=== PATIENT | female | born 1995 | race African-American/Black ===

== ENCOUNTER 2023-10-17 12:51 | Emergency (ER) | payer OTHER ==
[2023-10-17] MEDS ORDERED: Azithromycin 1,000 MG, Admixture Fee 1 EACH in Sodium Chloride 0.9% 500 ML IVPB SCH (13:45)
[2023-10-17] MEDS ORDERED: Tranexamic Acid 1,000 MG/10 ML VIAL ONE (13:55)
[2023-10-17] MEDS ORDERED: Carboprost 250 MCG/ML AMP ONE (13:55)
[2023-10-17] MEDS ORDERED: Misoprostol 200 MCG TAB ONE (13:55)
[2023-10-17] MEDS ORDERED: Methylergonovine 0.2 MG/ML VIAL ONE (13:56)
[2023-10-17] MEDS ORDERED: SUGAMMADEX SODIUM 200 MG/2 ML VIAL ONE (14:02)
[2023-10-17] MEDS ORDERED: Famotidine/PF 20 mg/2ml Vial ONE (14:02)
[2023-10-17] MEDS ORDERED: PROPOFOL 20 ML ONE (14:03)
[2023-10-17] MEDS ORDERED: fentaNYL 50 mcg/mL 1 mL Vial ONE ×2 (14:03→14:35)
[2023-10-17] MEDS ORDERED: Lidocaine 2% PF 5 ML VIAL ONE (14:04)
[2023-10-17] MEDS ORDERED: SUCCINYLCHOLINE/SOD CL,ISO/PF 200 MG/10 ML SYRINGE FS ONE (14:04)
[2023-10-17] MEDS ORDERED: Midazolam HCl 2 mg/2 ml Vial ONE (14:04)
[2023-10-17 14:08] LABS: #Basophils 0.05 10x3/uL (0.0-0.2); #Eosinphils 0.05 10x3/uL (0.0-0.5); #Monocytes 0.81 10x3/uL (0.0-1.1); #Neutrophils 13.53 10x3/uL (1.5-8.4); %Basophils 0.3 % (0.0-2.0); %Eosinophils 0.3 % (0.0-6.0); %Lymphocytes 9.6 % (18.0-47.0); %Neutrophils 84.4 % (40.0-75.0); Hematocrit 23.3 % (34.9-44.5); Hemoglobin 7.2 g/dL (12.0-15.5); Mean Corpuscular HGB CONC 30.9 g/dL (32.0-36.0); Mean Corpuscular Volume 74.4 fL (81.6-98.3); Mean Platelet Volume 10.8 fL (7.4-10.4); Platelet Count 188 10x3/uL (150-450); RBC Distribution Width 19.7 % (11.5-14.5); Red Blood Cell (RBC) Count 3.13 10x6/uL (3.90-5.03); White Blood Cell (WBC) Count 16.1 10x3/uL (3.5-10.5)
[2023-10-17] MEDS ORDERED: Ketorolac Tromethamine 30 MG (1 mL) VIAL ONE (14:18)
[2023-10-17] MEDS ORDERED: Ondansetron PF 4 MG/2 ML Vial ONE (14:18)
[2023-10-17] MEDS ORDERED: Dexamethasone 4 mg/ml Vial ONE (14:18)
[2023-10-17] MEDS ORDERED: Meperidine HCl/PF 25 MG (1 mL) VIAL ONE (14:39)
[2023-10-17] MEDS ORDERED: Ibuprofen 400 MG TAB PO PRN (15:01)
[2023-10-17 16:48] LABS: Anisocytosis SLIGHT = 6-15 cells (100X) (0-5/hpf); Hypochromia SLIGHT = 6-15 cells (100X) (0-5/hpf); Microcytosis SLIGHT = 6-15 cells (100X) (0-5/hpf); Poikilocytosis SLIGHT = 6-15 cells (100X) (0-5/hpf)
[2023-10-17 16:50] LABS: Elliptocytes SLIGHT = 2-5 cells (100X) (0-1/hpf); Ovalocytes SLIGHT = 2-5 cells (100X) (0-1/hpf)
[2023-10-17 16:52] LABS: Burr Cells SLIGHT = 2-5 cells (100X) (0-1/hpf)
[2023-10-17 16:53] LABS: Large Platelets SLIGHT (None Seen); Platelet Adequacy Comment Appears Adequate; Platelet Clumps SLIGHT; Tear Drops SLIGHT = 2-5 cells (100X) (0-1/hpf)
== END 2023-10-17 14:19 | disposition admitted as inpatient to this hospital (09) ==
LOC: CSHERS 12:51
PROC: 10D17ZZ Extraction of Products of Conception, Retained, Via Natural or Artificial Opening (ICD-10-PCS; principal; 2023-10-17)
DX: O03.4 Incomplete spontaneous abortion without complication (principal); D25.9 Leiomyoma of uterus, unspecified; Z79.899 Other long term (current) drug therapy; Z3A.09 9 weeks gestation of pregnancy
CPT/HCPCS: 36415; 76856; 81001; 84702; 85025; 86850; 86900; 86901; 87086; 88305; 96374; 96375; 99285; J0456; J1100; J1885; J2001; J2175; J2210; J2250; J2270; J2405; J2704; J3010; J3490; J7030; S0028

== ENCOUNTER 2023-10-21 21:47 | Inpatient (IN) | payer OTHER ==
[2023-10-21] MEDS ORDERED: hydrALAZINE 20 MG/ML VIAL SLOW IVP PRN (22:22)
[2023-10-21] MEDS ORDERED: Promethazine HCl 25 MG/ML VIAL IM PRN (22:22)
[2023-10-21] MEDS: Acetaminophen 500 MG TAB PO PRN (22:42)
[2023-10-21] MEDS: metroNIDAZOLE 500 MG in Premix 1 BAG IVPB SCH (23:20)
[2023-10-21] MEDS: Potassium Chloride 20 MEQ TAB PO SCH (23:34)
[2023-10-21 23:54] VITALS: BMI 28.2
[2023-10-22] MEDS: Ibuprofen 800 MG TAB PO PRN (02:47)
[2023-10-22 03:57] LABS: #Basophils 0.02 10x3/uL (0.0-0.2); #Monocytes 0.77 10x3/uL (0.0-1.1); #Neutrophils 9.07 10x3/uL (1.5-8.4); %Basophils 0.2 % (0.0-2.0); %Eosinophils 1.6 % (0.0-6.0); %Lymphocytes 18.8 % (18.0-47.0); %Monocytes 6.2 % (0.0-10.0); %Neutrophils 72.6 % (40.0-75.0); Hematocrit 24.5 % (34.9-44.5); Hemoglobin 7.8 g/dL (12.0-15.5); Mean Corpuscular HGB CONC 31.8 g/dL (32.0-36.0); Mean Corpuscular Hemoglobin 24.8 pg (27.0-33.0); Mean Corpuscular Volume 77.8 fL (81.6-98.3); Mean Platelet Volume 10.1 fL (7.4-10.4); Platelet Count 280 10x3/uL (150-450); RBC Distribution Width 19.2 % (11.5-14.5); Red Blood Cell (RBC) Count 3.15 10x6/uL (3.90-5.03); White Blood Cell (WBC) Count 12.5 10x3/uL (3.5-10.5)
[2023-10-22 04:08] LABS: PTT 27.1 sec (22.0-33.0); Prothrombin Time 10.8 sec (9.5-12.1)
[2023-10-22 04:12] LABS: Anion Gap 13 mmol/L (10-20); BUN (Urea Nitrogen) 5 mg/dL (7.0-18.7); Calc. Creatinine Clearance 142 mL/min (70-130); Calcium 9.1 mg/dL (7.8-10.44); Carbon Dioxide 23 mmol/L (22-29); Chloride 107 mmol/L (98-107); Estimated GFR 113; Glucose 90 mg/dL (70-105); Sodium 139 mmol/L (136-145)
[2023-10-22] MEDS: Acidophilus Lactiobac CAPSULE PO SCH (08:31)
[2023-10-22] MEDS: metroNIDAZOLE 500 MG TAB PO SCH (08:31)
[2023-10-22] MEDS: Doxycycline 100 MG CAP PO SCH (08:31)
[2023-10-22] MEDS: Ferrous Sulfate 325 MG TAB PO SCH (12:02)
[2023-10-22 13:59] LABS: #Basophils 0.02 10x3/uL (0.0-0.2); #Eosinphils 0.27 10x3/uL (0.0-0.5); #Monocytes 0.63 10x3/uL (0.0-1.1); #Neutrophils 8.07 10x3/uL (1.5-8.4); %Basophils 0.2 % (0.0-2.0); %Eosinophils 2.5 % (0.0-6.0); %Lymphocytes 15.8 % (18.0-47.0); %Monocytes 5.8 % (0.0-10.0); %Neutrophils 74.8 % (40.0-75.0); Hematocrit 25.5 % (34.9-44.5); Mean Corpuscular HGB CONC 31.4 g/dL (32.0-36.0); Mean Corpuscular Hemoglobin 24.5 pg (27.0-33.0); Mean Corpuscular Volume 78.2 fL (81.6-98.3); Mean Platelet Volume 10.5 fL (7.4-10.4); Platelet Count 290 10x3/uL (150-450); RBC Distribution Width 19.2 % (11.5-14.5); Red Blood Cell (RBC) Count 3.26 10x6/uL (3.90-5.03); White Blood Cell (WBC) Count 10.8 10x3/uL (3.5-10.5)
[2023-10-22] MEDS: cefTRIAXone\\ROCEPHIN 1 GM in Sodium Chloride 0.9% 100 ML IVPB SCH (19:27)
[2023-10-22] MEDS: Acetaminophen 500 MG TAB PO SCH (21:25)
[2023-10-22] MEDS ORDERED: cefTRIAXone\\ROCEPHIN 1 GM in Sodium Chloride 0.9% 100 ML IVPB SCH (22:30)
[2023-10-23] MEDS: Acetaminophen 500 MG TAB PO PRN (03:37)
[2023-10-23 03:45] LABS: #Basophils 0.04 10x3/uL (0.0-0.2); #Eosinphils 0.29 10x3/uL (0.0-0.5); #Monocytes 0.75 10x3/uL (0.0-1.1); #Neutrophils 8.86 10x3/uL (1.5-8.4); %Basophils 0.3 % (0.0-2.0); %Eosinophils 2.4 % (0.0-6.0); %Lymphocytes 16.4 % (18.0-47.0); %Monocytes 6.2 % (0.0-10.0); %Neutrophils 73.4 % (40.0-75.0); Hematocrit 24.4 % (34.9-44.5); Hemoglobin 7.5 g/dL (12.0-15.5); Mean Corpuscular HGB CONC 30.7 g/dL (32.0-36.0); Mean Platelet Volume 10.5 fL (7.4-10.4); Platelet Count 300 10x3/uL (150-450); RBC Distribution Width 19.5 % (11.5-14.5); Red Blood Cell (RBC) Count 3.13 10x6/uL (3.90-5.03); White Blood Cell (WBC) Count 12.1 10x3/uL (3.5-10.5)
[2023-10-23] MEDS: Methylergonovine 0.2 MG TAB PO SCH (15:36)
[2023-10-23] MEDS: cefTRIAXone (ROCEPHIN) 1 GM VIAL ONE (20:50)
[2023-10-23] MEDS: Ondansetron PF 4 MG/2 ML Vial IVP PRN (22:18)
[2023-10-24 04:48] LABS: #Basophils 0.03 10x3/uL (0.0-0.2); #Eosinphils 0.35 10x3/uL (0.0-0.5); #Monocytes 0.79 10x3/uL (0.0-1.1); #Neutrophils 8.82 10x3/uL (1.5-8.4); %Basophils 0.2 % (0.0-2.0); %Eosinophils 2.9 % (0.0-6.0); %Lymphocytes 15.4 % (18.0-47.0); %Monocytes 6.6 % (0.0-10.0); %Neutrophils 73.2 % (40.0-75.0); Hematocrit 26.9 % (34.9-44.5); Hemoglobin 8.3 g/dL (12.0-15.5); Mean Corpuscular HGB CONC 30.9 g/dL (32.0-36.0); Mean Corpuscular Hemoglobin 24.2 pg (27.0-33.0); Mean Corpuscular Volume 78.4 fL (81.6-98.3); Mean Platelet Volume 10.9 fL (7.4-10.4); Platelet Count 353 10x3/uL (150-450); RBC Distribution Width 19.9 % (11.5-14.5); Red Blood Cell (RBC) Count 3.43 10x6/uL (3.90-5.03); White Blood Cell (WBC) Count 12.1 10x3/uL (3.5-10.5)
[2023-10-24 09:47] VITALS: BP 131/80; TEMP 98.4
[2023-10-28 14:13] LABS: Hemoglobin A2 2.4 % (1.8-3.2); Hemoglobin F 0 % (0.0-2.0)
== END 2023-10-24 14:35 | disposition home or self-care (01) | DRG 812 ==
LOC: CSHPP 21:47
PROVIDERS: ADMIT Emergency Medicine; ATTEND Emergency Medicine
DX: D62 Acute posthemorrhagic anemia (principal); N71.9 Inflammatory disease of uterus, unspecified; E87.6 Hypokalemia; D25.9 Leiomyoma of uterus, unspecified; F43.21 Adjustment disorder with depressed mood; Z79.899 Other long term (current) drug therapy; N93.9 Abnormal uterine and vaginal bleeding, unspecified; D64.9 Anemia, unspecified
CPT/HCPCS: 36415; 36416; 36430; 72197; 76856; 80048; 80053; 82728; 83021; 85025; 85610; 85730; 86850; 86900; 86901; 93976; 96365; 96367; 96375; J0696; J1885; J2270; J2405; J3490; P9016